=== PATIENT | female | born 1980 | race Two or more races ===

== ENCOUNTER 2020-02-14 06:36 | Inpatient (IN) | payer MEDICAID, OTHER ==
[~2020-02-14] VITALS: Ht 172.7 cm; Wt 111.1 kg
[2020-02-14] VITALS (8 sets, daily range): BP systolic 113–146; BP diastolic 58–95
[2020-02-14] MEDS ORDERED: ALBUTEROL (0.083%) 2.5MG/3ML NEB HHN STA (06:44)
[2020-02-14] MEDS ORDERED: MAGNESIUM 2 G PREMIX 50 ML IV STA (06:44)
[2020-02-14] MEDS ORDERED: IPRATROPIUM BROMIDE (0.02%) 0.5MG/2.5ML NEB HHN STA (06:44)
[2020-02-14] MEDS ORDERED: METHYLPREDNISOLONE SOD SUCC 125 MG/2 ML VIAL IV STA (06:44)
[2020-02-14] MEDS ORDERED: RACEPINEPHRINE 2.25% 0.5ML NEB VIAL ONE (06:56)
[2020-02-14] MEDS ORDERED: RACEPINEPHRINE 2.25% 0.5ML NEB VIAL HHN ONE (07:00)
[2020-02-14 07:10] LABS: BASOPHILS % 1.2 % (0.0-2.0); CHLORIDE 107 mEq/L (98-107); EOSINOPHILS % 1.5 % (0.0-5.0); HEMATOCRIT. 43.2 % (36.0-48.0); HEMOGLOBIN. 14.8 g/dL (12.0-16.0); LYMPHOCYTES % 46.1 % (20.0-50.0); MEAN CORPUSCULAR HEMOGLOBIN 29.7 pg (28.0-32.0); MEAN CORPUSCULAR VOLUME 86.6 fL (81.0-99.0); MEAN PLATELET VOLUME 10.5 fl (7.4-10.4); NEUTROPHILS % 39.2 % (40.0-76.0); PLATELET 209 x1000/uL (130-400); RED BLOOD CELL COUNT 4.98 mill/uL (4.2-5.4); RED CELL DISTRIBUTION WIDTH 13.2 % (11.6-14.6)
[2020-02-14 07:13] LABS: INR 0.9
[2020-02-14 07:19] LABS: CREATINE KINASE 58 IU/L (26-192)
[2020-02-14 07:26] LABS: HCG SCREEN NEGATIVE
[2020-02-14] MEDS ORDERED: CLINDAMYCIN 600 MG in DEXTROSE 5% WATER 50 ML IV ONE (07:30)
[2020-02-14] MEDS ORDERED: PIPERACILLIN/TAZ 3.375G PREMIX 50 ML IV ONE (07:30)
[2020-02-14] MEDS ORDERED: CLINDAMYCIN 600MG PREMIX 50 ML IV SCH (07:45)
[2020-02-14 08:28] LABS: CLARITY URINE CLEAR (CLEAR); COLOR URINE YELLOW (YELLOW); KETONES URINE NEGATIVE (NEGATIVE); LEUKOCYTE ESTERASE URINE NEGATIVE (NEGATIVE); NITRITE URINE NEGATIVE (NEGATIVE); OCCULT BLOOD URINE NEGATIVE (NEGATIVE); PROTEIN URINE NEGATIVE (NEGATIVE); SPECIFIC GRAVITY URINE 1.015 (1.005-1.030); UROBILINOGEN URINE 0.2 E.U./dL (0.2-1.0)
[2020-02-14] MEDS ORDERED: GUAIFENESIN 200MG/10ML SUGAR FREE UDC PO PRN (08:30)
[2020-02-14] MEDS ORDERED: ONDANSETRON HCL 4MG/2ML INJ IV PRN (08:30)
[2020-02-14] MEDS ORDERED: MORPHINE SULFATE 2 MG/ML CPJ (NOT FOR IM USE) IV PRN (08:30)
[2020-02-14] MEDS ORDERED: LEVOFLOXACIN 500MG PREMIX 100 ML IV SCH ×2 (08:30→10:00)
[2020-02-14] MEDS ORDERED: MAGNESIUM/ALUMINUM HYDROXIDE/SIMETHICONE 30ML UDC PO PRN (08:30)
[2020-02-14] MEDS ORDERED: DOCUSATE SODIUM 100MG CAPSULE PO PRN (08:30)
[2020-02-14] MEDS ORDERED: CLONIDINE 0.1MG TABLET PO PRN (08:30)
[2020-02-14] MEDS ORDERED: IPRATROPIUM/ALBUTEROL 0.5-3(2.5)MG/3ML NEB NEB PRN (08:30)
[2020-02-14] MEDS ORDERED: DIPHENHYDRAMINE 50MG/ML VIAL IV PRN (08:30)
[2020-02-14] MEDS ORDERED: ACETAMINOPHEN 325MG TABLET PO PRN (08:30)
[2020-02-14] MEDS ORDERED: LORAZEPAM 2MG/ML CPJ IV PRN (08:30)
[2020-02-14] MEDS ORDERED: NA PHOS,M-B/NA PHOS,DI-BA ENEMA 118ML PR PRN (08:30)
[2020-02-14] MEDS ORDERED: HYDROCODONE/ACETAMINOPHEN 5/325MG TABLET PO PRN (08:30)
[2020-02-14] MEDS ORDERED: SODIUM CHLORIDE 0.9% 1,000 ML IV ONE (08:58)
[2020-02-14] MEDS ORDERED: ENOXAPARIN 40MG/0.4ML SYR SUBCUT SCH (09:00)
[2020-02-14] MEDS ORDERED: LORATADINE 10MG TABLET PO SCH (09:45)
[2020-02-14] MEDS: ASPIRIN 81MG EC TABLET PO SCH (10:20)
[2020-02-14 10:44] LABS: CHLORIDE 109 mEq/L (98-107)
[2020-02-14] MEDS: METHYLPREDNISOLONE SOD SUCC 125 MG/2 ML VIAL IV SCH ×3 (12:07→22:38)
[2020-02-14] MEDS ORDERED: ALBU6.7H9 INH (13:06)
[2020-02-14] MEDS: LORATADINE 10MG TABLET PO SCH (13:22)
[2020-02-14] MEDS: MONTELUKAST SODIUM 10MG TABLET PO SCH (17:13)
[2020-02-14] MEDS ORDERED: POTASSIUM CHLORIDE 20MEQ TABLET SR PO NR (18:01)
[2020-02-14] MEDS: FAMOTIDINE 20MG TABLET PO SCH (22:34)
[2020-02-14] MEDS: ENOXAPARIN 30MG/0.3ML SYR SUBCUT SCH (22:40)
[2020-02-15] VITALS (11 sets, daily range): BP systolic 96–153; BP diastolic 54–83
[2020-02-15] MEDS: METHYLPREDNISOLONE SOD SUCC 125 MG/2 ML VIAL IV SCH ×3 (05:02→17:40)
[2020-02-15 06:36] LABS: BASOPHILS % 0.1 % (0.0-2.0); HEMATOCRIT. 40.4 % (36.0-48.0); HEMOGLOBIN. 13.4 g/dL (12.0-16.0); LYMPHOCYTES % 9.3 % (20.0-50.0); MEAN CORPUSCULAR HEMOGLOBIN 29.1 pg (28.0-32.0); MEAN CORPUSCULAR VOLUME 87.7 fL (81.0-99.0); MEAN PLATELET VOLUME 10.2 fl (7.4-10.4); NEUTROPHILS % 87.6 % (40.0-76.0); PLATELET 154 x1000/uL (130-400); RED CELL DISTRIBUTION WIDTH 13.4 % (11.6-14.6)
[2020-02-15 06:49] LABS: CHLORIDE 111 mEq/L (98-107)
[2020-02-15 06:58] LABS: LDL CHOLESTEROL 134 mg/dL (5-100)
[2020-02-15 06:59] LABS: HDL CHOLESTEROL 32 mg/dL (40-59); T4 FREE 1.27 ng/dL (0.76-1.46)
[2020-02-15] MEDS: ENOXAPARIN 30MG/0.3ML SYR SUBCUT SCH ×2 (08:03→21:16)
[2020-02-15] MEDS: LORATADINE 10MG TABLET PO SCH (08:03)
[2020-02-15] MEDS: FAMOTIDINE 20MG TABLET PO SCH ×2 (08:04→21:16)
[2020-02-15] MEDS: ASPIRIN 81MG EC TABLET PO SCH (08:04)
[2020-02-15] MEDS: LEVOFLOXACIN 500MG PREMIX 100 ML IV SCH (08:04)
[2020-02-15] MEDS ORDERED: TERBUTALINE SULFATE 1MG/ML VIAL SUBCUT SCH (13:30)
[2020-02-15] MEDS: MONTELUKAST SODIUM 10MG TABLET PO SCH (17:40)
[2020-02-16] VITALS (10 sets, daily range): BP systolic 111–144; BP diastolic 58–83
[2020-02-16] MEDS: METHYLPREDNISOLONE SOD SUCC 125 MG/2 ML VIAL IV SCH ×3 (00:02→12:11)
[2020-02-16] MEDS: IPRATROPIUM/ALBUTEROL 0.5-3(2.5)MG/3ML NEB HHN SCH ×3 (01:28→14:57)
[2020-02-16 07:03] LABS: BASOPHILS % 0.2 % (0.0-2.0); HEMATOCRIT. 40.6 % (36.0-48.0); HEMOGLOBIN. 13.4 g/dL (12.0-16.0); LYMPHOCYTES % 7.9 % (20.0-50.0); MEAN CORPUSCULAR HEMOGLOBIN 29.3 pg (28.0-32.0); MEAN CORPUSCULAR VOLUME 88.6 fL (81.0-99.0); MEAN PLATELET VOLUME 10.5 fl (7.4-10.4); MONOCYTES % 3.1 % (2.0-8.0); NEUTROPHILS % 88.8 % (40.0-76.0); PLATELET 189 x1000/uL (130-400); RED BLOOD CELL COUNT 4.58 mill/uL (4.2-5.4); RED CELL DISTRIBUTION WIDTH 13.8 % (11.6-14.6)
[2020-02-16 07:47] LABS: CHLORIDE 109 mEq/L (98-107)
[2020-02-16] MEDS: LORATADINE 10MG TABLET PO SCH (08:47)
[2020-02-16] MEDS: FAMOTIDINE 20MG TABLET PO SCH (08:47)
[2020-02-16] MEDS: LEVOFLOXACIN 500MG PREMIX 100 ML IV SCH (08:47)
[2020-02-16] MEDS: ASPIRIN 81MG EC TABLET PO SCH (08:48)
[2020-02-16] MEDS: ENOXAPARIN 30MG/0.3ML SYR SUBCUT SCH (08:49)
[2020-02-16] MEDS: MONTELUKAST SODIUM 10MG TABLET PO SCH (16:25)
== END 2020-02-16 17:00 | disposition home or self-care (01) | DRG 720 ==
LOC: ER 06:36 → EDBEDREQSVC 06:49 → EDBEDREQTM 07:54 → EDBEDREQ 07:54 → 5EST 08:22 → EDBEDREQSVC 08:29 → EDBEDREQTM 08:38 → ENRESERV 11:45
PROVIDERS: ADMIT Internal Medicine; ATTEND Internal Medicine
DX: A41.9 Sepsis, unspecified organism (principal); J96.00 Acute respiratory failure, unspecified whether with hypoxia or hypercapnia; J45.901 Unspecified asthma with (acute) exacerbation; I10 Essential (primary) hypertension; E66.9 Obesity, unspecified; D72.829 Elevated white blood cell count, unspecified; E78.5 Hyperlipidemia, unspecified; T38.0X5A Adverse effect of glucocorticoids and synthetic analogues, initial encounter; Y92.89 Other specified places as the place of occurrence of the external cause; Z68.37 Body mass index [BMI] 37.0-37.9, adult
CPT/HCPCS: 36415; 70360; 71045; 80048; 80053; 80061; 81003; 82550; 83605; 83880; 84145; 84439; 84443; 84484; 84703; 85025; 93005; 94640; 99291; J1650; J1956; J2543; J2930; J3105; J3475; J3490; J7030; J7060

== ENCOUNTER 2020-04-14 14:29 | Emergency (ER) | payer MEDICAID ==
[~2020-04-14] VITALS: Ht 167.6 cm; Wt 106.0 kg
[~2020-04-14 14:29] MED LIST: ALBU6.7H9 INH
[2020-04-14] MEDS ORDERED: IPRATROPIUM BROMIDE (0.02%) 0.5MG/2.5ML NEB HHN STA (15:23)
[2020-04-14] MEDS ORDERED: PREDNISONE 20MG TABLET PO STA (15:23)
[2020-04-14] MEDS ORDERED: ALBUTEROL (0.083%) 2.5MG/3ML NEB HHN STA (15:23)
[2020-04-14] MEDS ORDERED: KETOROLAC 60MG/2ML VIAL IM ONE (15:45)
[2020-04-14 16:25] LABS: HCG SCREEN NEGATIVE
[2020-04-14] MEDS ORDERED: VISCOUS LIDOCAINE 2% 15 ML UDC PO ONE (18:15)
[2020-04-14] MEDS ORDERED: MAGNESIUM/ALUMINUM HYDROXIDE/SIMETHICONE 30ML UDC PO ONE (18:15)
[2020-04-14 20:35] VITALS: BP 144/79
== END 2020-04-14 21:00 | disposition home or self-care (01) ==
LOC: ER 14:29
DX: J45.901 Unspecified asthma with (acute) exacerbation (principal); J02.9 Acute pharyngitis, unspecified
CPT/HCPCS: 71045; 81025; 84703; 87070; 87430; 94644; 99285; J1885; J7512; Z7610